=== PATIENT | male | born 1990 | race Caucasian/White ===

== ENCOUNTER → 2019-11-05 | Outpatient (CLI) | payer BC ==
[~2019-11-05] VITALS: Ht 188 cm; Wt 114.9 kg
[~2019-11-05] MED LIST: EXCEDRIN CAPLE1 EACH PO; NABUMETONE 500500 M1 PO
[2019-11-05 08:27] VITALS: BP 126/83
--- NOTE | 2019-11-05 08:45 | NUR ---
Pain Clinic Assessment: 1. History of Osteoarthritis: Not Applicable History of Rheumatoid Arthritis: Not Applicable 2. Height: 6 ft. 2 in. 188.0 cm. Weight: 253.4 lb. oz. 114.942 kg. Patient's BMI: 32.5 3. Vital Signs: BP: 126/83 Pulse: 98 Resp: 18 Temp: 02 Sat: 98 ECG Mon: 4. Pain Intensity: 2 5. Fall Risk: Dizziness: N Needs help standing or walking: N Fallen in the last 3 months: N Fall risk comments: 6. Patient on Blood Thinner: None 7. History of Hypertension: N 8. Opioid Therapy greater than 6 weeks: N Opiate Contract Signed: 9. Risk Assessment Tool Provided: 0-LOW RISK 10. Functional Assessment Tool: 35/ 11. Recreational Drug Use: Never Drug Type: Tobacco Use: Never Smoker Tobacco Type: Amount or Packs/day: How Many Years: Alcohol Use: No Frequency: Quant:
--- NOTE | 2019-11-06 11:52 | HPC ---
[facility] [place] [address] PAIN MANAGEMENT CONSULTATION Name: ANA LUISA NAVAS Room #: REG CLYasmin Cazares#: [id number] Admission: 11/05/19 Attend Phys: Pedro Woodward DO Discharge: Date of : 86 Report #: [id number] THIS REPORT FOR: cc: RJ - No family physician/PCP FAM - No family physician/PCP Pedro Woodward DO ~ DATE OF SERVICE: 11/05/2019 CHIEF COMPLAINT: Low back pain, left lower extremity pain with paresthesias. HISTORY OF PRESENT ILLNESS: As you know, the patient is a 29-year-old male who reports longstanding history of low back pain, left lower extremity pain with intermittent paresthesias. The patient states his pain began on 01/21/2019. He denies specific injury or trauma that may have led to symptom occurrence. He states that he has been dealing with his pain for an extended period of time. He sought evaluation through Neurosurgery, who advised the patient, no surgical intervention is necessary. He continues to experience pain that was not resolved with his typical chiropractic manipulation. As his pain continued to worsen, he sought further evaluation. He saw nurse practitioner, Jessica Cortes in consultation on 09/16/2019. They reviewed the patient's history and his MRI and advised him he is not a surgical candidate that the findings in his imaging are relatively minor and that a conservative treatment option should be initiated. The patient states that he has been subsequently referred to our clinic after undergoing physical therapy for the past 4-5 weeks. He has been applying topical lidocaine patches to the area and takes Excedrin for pain control. Prior to the recent exacerbation of symptoms, he was able to receive benefit with chiropractic manipulation, but the chiropractor is now indicated that his problems are "too significant" for them to continue to treat conservatively. He was subsequently referred to Neurosurgery, who then referred the patient on to our clinic to discuss interventional treatment options. The patient indicates today pain is continuous, steady and constant. He describes the pain as shooting, throbbing, sharp, stabbing and tender. He is placing his current pain score 2/10, daily average of 6-7/10, worst pain has been 10/10. The patient states pain is exacerbated with movement, improves with Lidoderm patches, heat, cold compresses and rest. The patient is involved in activities at work that could exacerbate his symptoms as he works for an [employer] company and he is in some "unusual places." He was referred to our service to discuss interventional treatment options to address axial back and intermittent left lower extremity pain. PAST MEDICAL HISTORY: Chronic headaches. PAST SURGICAL HISTORY: Eye surgery in 1990 and again [place] [address] PAIN MANAGEMENT CONSULTATION Name: ANA LUISA NAVAS Room #: REG RITO Cazares#: [id number] Admission: 11/05/19 Attend Phys: Pedro Woodward DO Discharge: Date of : 86 Report #: [id number] SOCIAL HISTORY: The patient denies tobacco, alcohol, IV or illicit drug use. 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 He is working, not receiving workmen's compensation or is trying to obtain discrete benefits. He is not in litigation in regards to pain. REVIEW OF SYSTEMS: Positive for weight gain, fatigue and weakness, frequent and recurrent headaches, wearing corrective eyewear, changes in bowel movements, some nausea, lightheadedness and dizziness, numbness and tingling sensations involving left lower extremity, nervousness, depression. All other review of systems negative per 12-point review of systems other than those listed in history of present illness. Pain impact score 35/70 indicating moderate interference of daily activities secondary to pain. ALLERGIES: No reported drug allergies. CURRENT MEDICATIONS: Excedrin caplet 2 tabs q. 8 hours p.r.n. pain. IMAGING: MRI lumbar spine obtained on 05/24/2019 shows epidural lipomatosis at L5 into the sacrum resulting in effacement of the subarachnoid space, otherwise no significant neural foraminal stenosis or central canal stenosis. There is a shallow posterior protrusion at L5-S1 with associated annular tear. No significant neural impingement at the level. There is mild facet degenerative changes at L5-S1. The rest of the lumbar spine is unremarkable. PHYSICAL EXAMINATION: VITAL SIGNS: Blood pressure 126/83, pulse 98, respiratory rate 18 and unlabored. The patient is 98% on room air, height 6 feet 2 inches tall, weight 253.4 pounds, BMI calculated at 32.5. GENERAL: Well-developed, well-nourished, well-hydrated, exogenously obese 29-year-old male appearing in stated age, pain is rated today 2/10. HEENT: Normocephalic, atraumatic. Pupils equal, round and reactive to light. Extraocular muscles are intact. Sclerae nonicteric without injection. NEUROLOGIC: Cranial nerves 2-12 grossly intact. Speech is fluent. The patient deemed a good historian. LUNGS: Clear. No wheezes, rhonchi or rales. CARDIOVASCULAR: Regular. No appreciable gallop, no rub. ABDOMEN: Soft, mildly obese, normoactive bowel sounds. EXTREMITIES: Show no clubbing, no cyanosis, and no edema. MUSCULOSKELETAL: Lower extremity strength appears symmetrical 5/5. He is intact to light touch from L1 through S2 dermatomes. Seated straight leg raising negative. Supine straight leg raising is negative. Kev's test negative. Modified Gaenslen's positive for axial low back pain. Ankle clonus negative. Babinski is negative. Gait is normal. The patient is able to toe [facility] [address] [place] [address] PAIN MANAGEMENT CONSULTATION Name: ANA LUISA NAVAS Room #: REG RITO Cazares#: [id number] Admission: 11/05/19 Attend Phys: Pedro Woodward DO Discharge: Date of : 88 Report #: [id number] walk, heel walk without complications. There is minor palpatory tenderness over the paraspinal musculature of lower lumbar spine. No spinous process tenderness. Modified Gaenslen's positive for some light axial back pain, no radiation of symptoms. ASSESSMENT: 1. Chronic low back pain. 2. Intermittent lumbar radiculopathy. 3. 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 4. Chronic axial back pain. PLAN: 1. Based on today's physical exam and history the patient has provided, the description the patient uses in regards to pain as well as location of symptoms, the patient is suffering from mild facet arthropathy of the lumbar spine, specifically at the L5-S1 level. Based on his history, it does appear the patient has had some lumbar radicular symptoms in the past and was subsequently referred to Neurosurgery. They advised the patient both at his initial surgical consultation and secondary consultation that surgery is not an option. Given the fact that there is an annular tear at the L5-S1 level, the patient was referred to our clinic to discuss the possibility of undergoing an epidural injection and determine if this could improve his overall pain. Physical examination today was relatively benign. There are some mild arthritic changes noted in some mild restriction of motion, but otherwise no emerson lumbar radicular symptoms noted today, though based on history, it does appear he had some symptoms radiating down the left leg. We discussed with the patient today treatment options we have available for his ongoing back symptoms. We discussed physical therapy, stretching exercises, core strengthening and a concerted effort at weight loss as a treatment course. I do feel this would be the goal standard treatment for this patient. We encouraged him to continue physical therapy and consider working more consistently on his core musculature. We discussed medication management adding anti-inflammatory medication for baseline pain control having him come off as Excedrin and trialing a new more potent medication. If the patient experiences recurrent radicular symptoms, additional medications could be amitriptyline, nortriptyline, Lyrica, Cymbalta or gabapentin. We discussed the requested lumbar epidural injection for which the patient was referred to our service by his neurosurgery team as an option. We also discussed spinal cord stimulator as an option if all other conservative options fail and he is remaining a nonsurgical candidate. After reviewing the risks and benefits of all proposed treatment options, the patient chose to make adjustments in medication management initially, trial stretching exercise, core strengthening at home and then consideration of lumbar epidural injection in a couple of weeks. 2. The patient was provided a prescription of nabumetone 500 mg dose 1 tab p.o. t.i.d. I have given the patient #90 tablets with 2 refills. I have advised the [address] [address] PAIN MANAGEMENT CONSULTATION Name: ANA LUISA NAVAS Room #: REG RITO Cazares#: [id number] Admission: 11/05/19 Attend Phys: Pedro Woodward DO Discharge: Date of : 86 Report #: [id number] patient to watch for dyspepsia, worsening of blood pressure, lower extremity edema with its use. He is not to utilize this medication with any other anti-inflammatories including his Excedrin. The patient will contact our clinic with any questions or concerns. Prescriptions were sent via [facility] to local pharmacy. 3. The patient and I will see each other again in followup visit in approximately 2 weeks. At that time, we will consider a lumbar epidural injection if his symptoms have not improved or he is continuing to experience lumbar radicular symptoms. We will plan to have the patient undergo an epidural injection at the next visit. If it is not necessary, we will adjust the medications if they are effective. Authorization is not necessary for this patient to undergo an epidural injection. 4. We have reviewed the patient's MRI with him in its entirety today. I am pleased to advise the patient that there are only minor changes noted at the L5-S1 level and should respond to conservative and even slightly more aggressive options such as an epidural injection. We are hopeful to be able to put the patient back into his typical work activity with minimal pain, so he can continue to participate in daily living. 5. We wish to thank Jessica Cortes for the opportunity to see this patient in consultation. We will keep you apprised of his response to treatment as we address his axial back pain and suspected lumbar radicular symptoms involving the low back and left lower extremity. Again, we wish to thank you for the opportunity to see the patient in consultation. <ELECTRONICALLY SIGNED> By: Pedro Woodward DO 11/06/19 1152 [id number] Pedro Woodward, DO /nt
== END ==
LOC: PAIN 07:57
DX: M51.27 Other intervertebral disc displacement, lumbosacral region (principal); M54.16 Radiculopathy, lumbar region

== ENCOUNTER → 2019-11-26 | Outpatient (CLI) | payer BC ==
[~2019-11-26] VITALS: Ht 188 cm; Wt 115.1 kg
[2019-11-26 08:11] VITALS: BP 122/84
--- NOTE | 2019-11-26 08:22 | NUR ---
Pain Clinic Assessment: 1. History of Osteoarthritis: Not Applicable History of Rheumatoid Arthritis: Not Applicable 2. Height: 6 ft. 2 in. 188.0 cm. Weight: 253.8 lb. oz. 115.123 kg. Patient's BMI: 32.6 3. Vital Signs: BP: 122/84 Pulse: 77 Resp: 16 Temp: 02 Sat: 99 ECG Mon: 4. Pain Intensity: 5-7 5. Fall Risk: Dizziness: N Needs help standing or walking: N Fallen in the last 3 months: N Fall risk comments: 6. Patient on Blood Thinner: None 7. History of Hypertension: N 8. Opioid Therapy greater than 6 weeks: N Opiate Contract Signed: 9. Risk Assessment Tool Provided: 0-LOW RISK 10. Functional Assessment Tool: 35/ 11. Recreational Drug Use: Never Drug Type: Tobacco Use: Never Smoker Tobacco Type: Amount or Packs/day: How Many Years: Alcohol Use: No Frequency: Quant:
--- NOTE | 2019-12-03 09:15 | HPC ---
[facility] [place] [address] PAIN MANAGEMENT CONSULTATION Name: ANA LUISA NAVAS Room #: REG CLYasmin Sage#: [id number] Admission: 11/26/19 Attend Phys: Pedro Woodward DO Discharge: Date of : 86 Report #: [id number] THIS REPORT FOR: cc: FAM - No family physician/PCP FAM - No family physician/PCP Pedro Woodward DO ~ DATE OF SERVICE: 11/26/2019 CHIEF COMPLAINT: Low back pain, left lower extremity pain and paresthesias. HISTORY OF PRESENT ILLNESS: As you know, the patient is a 29-year-old male with longstanding history of low back pain, left lower extremity pain and paresthesias. He states his pain began on 01/21/2019, denying any specific injury or trauma. He was seen by Neurosurgery who referred the patient to our clinic to discuss interventional treatments. We saw the patient on 11/05/2019 where we made adjustments in his medication management to address pain. We started him on an anti-inflammatory to control any inflammation and had noted some improvement in symptoms, but unfortunately his pain did not resolve. He now places his pain score 5-7/10. He returns today in followup visit to undergo first in a series of lumbar epidural injections under fluoroscopic guidance per the request of his neurosurgery team. The patient denies any new injury or trauma that may have led to symptom continuation. ALLERGIES: No reported drug allergies. CURRENT MEDICATIONS: Nabumetone 500 mg 3 times a day, Excedrin 1 tablet to 2 tablets p.r.n. breakthrough headache pain. SOCIAL HISTORY: The patient denies tobacco, alcohol, IV or illicit drug use. 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 He is accompanied by his significant other present in room. IMAGING: No new imaging available. PHYSICAL EXAMINATION: VITAL SIGNS: Blood pressure 122/84, pulse 77, respiratory rate 16 and unlabored, the patient is 99% on room air, height 6 feet 2 inches tall, weight 253.8 pounds, BMI calculated at 32.6. GENERAL: Well-developed, well-nourished, well-hydrated 29-year-old male appearing stated age. He is placing pain today at -03/13. HEENT: Normocephalic, atraumatic. Pupils equal, round, reactive to light. Speech is fluent. The patient deemed a good historian. EXTREMITIES: Show no clubbing, no cyanosis, and no edema. MUSCULOSKELETAL: Lower extremity strength appears symmetrical again today 01/06. [address] [address] PAIN MANAGEMENT CONSULTATION Name: ANA LUISA NAVAS [id number] Admission: 11/26/19 Attend Phys: Pedro Woodward DO Discharge: Date of : 86 Report #: [id number] He is intact to light touch from L1 through S2 dermatomes. Straight leg raising in the seated position is negative. Supine straight leg raising is negative. Kev's test is negative. Modified Gaenslen's positive for some axial low back pain. Ankle clonus negative. Babinski is negative. Gait appears mildly antalgic favoring left lower extremity over right. The patient is able to toe walk and heel walk without complications. ASSESSMENT: 1. Lumbar radiculopathy. 2. Mild displacement of lumbar intervertebral disk with radicular symptoms. 3. Chronic low back pain. 4. Chronic intractable pain. PLAN: 1. The patient returns today in followup visit indicating that the nabumetone trial at the last visit did provide some benefit in overall pain, but did not resolve his symptoms consistently. He has noted improvement in his axial symptoms, but has not seen any improvement in his left lower extremity pain. He returns today in followup visit per the request of his neurosurgery team to undergo lumbar epidural injection under fluoroscopic guidance. The patient denies any new injury or trauma that may have led to continuation of pain. He has been able to go about activities of daily living with pain interference and is hopeful to see improvement in symptoms with today's procedure. The patient was advised risks and benefits of a lumbar epidural injection. These risks include but are not necessarily limited to bleeding, bruising, infection, worsening pain, no relief of pain, also risk of temporary or permanent muscle weakness, temporary or permanent nerve damage, possible paralysis and . The patient states understood and wished to proceed. 2. No medication changes made at today's visit. The patient will continue current medical therapy as previously prescribed. 3. We will see the patient back in followup visit in 31 days. At that time, review the efficacy of today's epidural injection and determine if next in the series of epidural injections might be recommended. PROCEDURE NOTE DESCRIPTION OF PROCEDURE: L5-S1 left parasagittal epidural steroid injection under fluoroscopic guidance. This is the first procedure of the first series that the patient is undergoing. After obtaining written consent, the patient was taken back to the fluoroscopy suite, placed in a prone position with pillow under the abdomen to decrease lumbar lordosis. The skin overlying the lumbosacral area was then prepped and draped in aseptic fashion. The L5-S1 vertebral interspace was then identified [address] [address] PAIN MANAGEMENT CONSULTATION Name: ANA LUISA NAVAS Room #: REG CLYasmin Cazares#: [id number] Admission: 11/26/19 Attend Phys: Pedro Woodward DO Discharge: Date of : 86 Report #: [id number] by AP fluoroscopy. The skin and subcutaneous tissue overlying the target site of injection was anesthetized with 3 mL 1% lidocaine. A 20-gauge 3.5 inch Tuohy needle was then advanced under fluoroscopic guidance towards the epidural space using a left parasagittal approach. The epidural space was identified using loss of resistance to air technique. After negative aspiration for heme or cerebrospinal fluid, a total of 1 mL of Omnipaque was injected. A lumbar epidurogram was confirmed using both AP and lateral fluoroscopy. After negative aspiration for heme or cerebrospinal fluid, 5 mL of a solution containing 2 mL 40 mg/mL 80 mg total triamcinolone along with 3 mL of lidocaine 1% was injected in increments. Contrast spread was noted post epidural space. The needle was then retracted approximately half way and needle tract flushed with 1 mL of 1% lidocaine. Needle was then removed. There were no apparent sensory or motor deficits in the lower extremity following the procedure. A sterile bandage was placed over the injection site. The heart rate, pulse, oximetry and blood pressure were continuously monitored after the procedure. There were no complications. The patient tolerated the procedure well and was carefully escorted to the recovery room in stable condition. There were no apparent complications. After meeting discharge criteria, the patient was then discharged home. <ELECTRONICALLY SIGNED> By: Pedro Woodward DO 12/03/19 0915 [id number] Pedro Woodward DO /jose
== END | disposition home or self-care (01) ==
LOC: PAIN 11-25 09:46
DX: M51.16 Intervertebral disc disorders with radiculopathy, lumbar region (principal); G89.29 Other chronic pain; M54.5 Low back pain; Z98.890 Other specified postprocedural states; Z79.899 Other long term (current) drug therapy

== ENCOUNTER → 2020-03-17 | Outpatient (CLI) | payer BC ==
[~2020-03-17] VITALS: Ht 188 cm; Wt 104.3 kg
[~2020-03-17] MED LIST changes: +ASPERCREME1 EACH TOP
--- NOTE | ~2020-03-17 | HPC ---
[facility] [address] [place] [address] PAIN MANAGEMENT CONSULTATION Name: ANA LUISA NAVAS Room #: REG RITO M.Noel.#: [id number] Admission: 03/17/20 Attend Phys: Pedro Woodward DO Discharge: Date of : 86 Report #: [id number] THIS REPORT FOR: cc: FAM - No family physician/PCP FAM - No family physician/PCP Pedro Woodward DO ~ CC: [facility] physician/PCP Pedro Cortes NP DATE OF SERVICE: 03/17/2020 REFERRING PHYSICIAN: Jessica Cortes NP CHIEF COMPLAINT: Low back pain, left lower extremity pain and paresthesias. HISTORY OF PRESENT ILLNESS: As you know, the patient is a 29-year-old male with longstanding history of low back pain, left lower extremity pain and paresthesias. The patient states the pain began 01/21/2019, no specific injury or trauma. He sought evaluation through [facility] who referred the patient to trial epidural injections. The patient has undergone epidural injections x 1 performed on 11/26/2019. The patient reports that that injection provided 60% improvement in overall pain lasting for nearly 2 months. Unfortunately, his symptoms have begun to return. He now places pain score around 2-3/10. He describes the pain as constant, shooting, throbbing, stabbing and tender, exacerbated with movement, walking and certain activities, improves with rest, heat, cold compresses, Lidoderm patches and epidural injections. He returns today in followup visit to undergo second in the series of epidural injections. ALLERGIES: No known drug allergies. CURRENT MEDICATIONS: Lidoderm patch apply topically q.12 hours p.r.n. IMAGING: There is no new imaging available. PHYSICAL EXAMINATION: VITAL SIGNS: Blood pressure 116/75, pulse 68, respiratory rate 14 and unlabored. The patient is 97% on room air. Height 6 feet 2 inches tall, weight 230 pounds, BMI calculated 29.5. GENERAL: Well-developed, well-nourished, well-hydrated 29-year-old male appearing stated age, no acute distress, awake, alert and oriented x 3, pain is rated today 2-3/10. HEENT: Normocephalic, atraumatic. Pupils equal, round and reactive. EXTREMITIES: Show no clubbing, no cyanosis, no edema. [facility] [address] [place] [address] PAIN MANAGEMENT CONSULTATION Name: ANA LUISA NAVAS Room #: REG CLYasmin Sage#: [id number] Admission: 03/17/20 Attend Phys: Pedro Woodward DO Discharge: Date of : 86 Report #: [id number] MUSCULOSKELETAL: Lower extremity strength is symmetrical 5/5, intact to light touch from L1 through S2 dermatomes. Seated straight leg raising negative. Supine straight leg raising negative. Kev's test negative. Modified Gaenslen's positive for axial low back pain. Ankle clonus negative. Babinski is negative. Muscle bulk and tone equal and symmetrical in comparing the lower extremities. ASSESSMENT: 1. Chronic lumbar radiculopathy. 2. 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 3. Chronic low back pain. 4. Chronic intractable pain. PLAN: 1. The patient returns today in followup visit per the request of his neurosurgery team to undergo next in the series of lumbar epidural injections. The patient reported about 60% improvement in overall pain with previous epidural injection. He has had a slow and progressive return of symptoms without inciting injury or trauma. He is placing pain score today at 2-3/10. He returns today in followup visit to undergo lumbar epidural injection in hopes of improving residual pain. The patient has been advised risks and benefits of a lumbar epidural injection. These risks include but are not necessarily limited to bleeding, bruising, infection, worsening pain, no relief of pain, also risk of temporary or permanent muscle weakness, temporary or permanent nerve damage, possible paralysis and . The patient states understood and wished to proceed. 2. No medication changes made at today's visit. The patient will continue current medical therapy as previously prescribed. 3. We will see the patient back in followup visit on an as needed basis for possible next in the series of lumbar epidural injections. PROCEDURE NOTE DESCRIPTION OF PROCEDURE: L5-S1 left paramedian epidural steroid injection under fluoroscopic guidance. This is the second procedure of the first series that the patient is undergoing. After obtaining written consent, the patient was taken back to the fluoroscopy suite, placed in a prone position with pillow under the abdomen to decrease lumbar lordosis. The skin overlying the lumbosacral area was then prepped and draped in aseptic fashion. The L5-S1 vertebral interspace was then identified by AP fluoroscopy. The skin and subcutaneous tissue overlying the target site of injection was anesthetized with 3 mL 1% lidocaine. [address] [address] PAIN MANAGEMENT CONSULTATION Name: ANA LUISA NAVAS Room #: SCOTT Cazares#: [id number] Admission: 03/17/20 Attend Phys: Pedro Woodward DO Discharge: Date of : 86 Report #: [id number] A 20-gauge 3-1/2 inch Tuohy needle was then advanced under fluoroscopic guidance towards the epidural space using a right paramedian approach. The epidural space was identified using loss of resistance to air technique. After negative aspiration for heme or cerebrospinal fluid, a total of 1 mL of Omnipaque was injected. A lumbar epidurogram was confirmed using both AP and lateral fluoroscopy. After negative aspiration for heme or cerebrospinal fluid, 5 mL of a solution containing 2 mL 40 mg per mL, 80 mg total triamcinolone along with 3 mL of lidocaine 1% was injected in increments. Contrast spread was noted posterior epidural space. The needle was then retracted approximately half way and needle tract flushed with 1 mL of 1% lidocaine. Needle was then removed. There were no apparent sensory or motor deficits in the lower extremity following the procedure. A sterile bandage was placed over the injection site. The heart rate, pulse, oximetry and blood pressure were continuously monitored after the procedure. There were no apparent complications. The patient tolerated the procedure well and was carefully escorted to the recovery room in stable condition. There were no apparent complications. After meeting discharge criteria, the patient was then discharged home. By: [id number] Pedro Woodward DO /nt
[2020-03-17 08:55] VITALS: BP 116/75
--- NOTE | 2020-03-17 09:04 | NUR ---
Pain Clinic Assessment: 1. History of Osteoarthritis: Not Applicable History of Rheumatoid Arthritis: Not Applicable 2. Height: 6 ft. 2 in. 188.0 cm. Weight: 230.0 lb. oz. 104.328 kg. Patient's BMI: 29.5 3. Vital Signs: BP: 116/75 Pulse: 69 Resp: 14 Temp: 02 Sat: 97 ECG Mon: 4. Pain Intensity: 2-3 5. Fall Risk: Dizziness: N Needs help standing or walking: N Fallen in the last 3 months: N Fall risk comments: 6. Patient on Blood Thinner: None 7. History of Hypertension: N 8. Opioid Therapy greater than 6 weeks: N Opiate Contract Signed: 9. Risk Assessment Tool Provided: 0-LOW RISK 10. Functional Assessment Tool: 35/ 11. Recreational Drug Use: Never Drug Type: Tobacco Use: Never Smoker Tobacco Type: Amount or Packs/day: How Many Years: Alcohol Use: No Frequency: Quant:
== END | disposition home or self-care (01) ==
LOC: PAIN 06:51
PROVIDERS: ATTEND Anesthesiology Pain Medicine
DX: M51.16 Intervertebral disc disorders with radiculopathy, lumbar region (principal); G89.29 Other chronic pain; Z98.890 Other specified postprocedural states; Z79.899 Other long term (current) drug therapy

== ENCOUNTER → 2020-10-28 | Outpatient (CLI) | payer BC, OTHER ==
[~2020-10-28] VITALS: Ht 188 cm; Wt 102.2 kg
--- NOTE | ~2020-10-28 | HPC ---
[facility] [address] [place] [address] PAIN MANAGEMENT CONSULTATION Name: ANA LUISA NAVAS Room #: REG RITO Sage#: [id number] Admission: 10/28/20 Attend Phys: Pedro Woodward DO Discharge: Date of : 86 Report #: [id number] THIS REPORT FOR: cc: FAM - No family physician/PCP FAM - No family physician/PCP Pedro Woodward DO ~ DATE OF SERVICE: 10/28/2020 CHIEF COMPLAINT: Low back pain, left lower extremity pain and paresthesias. HISTORY OF PRESENT ILLNESS: As you know, the patient is a pleasant 29-year-old male with longstanding history of low back pain, left lower extremity pain with paresthesias. He states his pain began on 01/21/2019 with no specific injury or trauma that led to symptom development. He sought evaluation through his primary care physician, ultimately being sent to Neurosurgery for evaluation. He was referred to our clinic to trial epidural injections under fluoroscopic guidance. He has done very well with epidural injections. The most recent epidural injection that was provided was in 03/2020. He received 75% improvement in overall pain until just recently where he has had a slow and progressive return of symptoms. He returns today in followup visit stating that activities over the past week to week and a half exacerbated pain. He was doing some construction around his home and doing some heavy lifting. He reports pain score today 3-4/10, returning in followup visit to undergo lumbar epidural injection. ALLERGIES: No known drug allergies. CURRENT MEDICATIONS: Lidoderm patch. IMAGING: No new imaging available. PHYSICAL EXAMINATION: VITAL SIGNS: Blood pressure 114/76, pulse 84, respiratory rate 16 and unlabored. The patient is 98% on room air, height 6 feet 2 inches tall, weight 225.2 pounds, BMI calculated 28.9. GENERAL: Well-developed, well-nourished, well-hydrated 29-year-old male appearing stated age, pain is rated today 3-4/10. HEENT: Normocephalic, atraumatic. Pupils equal, round. He is wearing glasses. He is wearing a mask in compliance with COVID-19 regulations. EXTREMITIES: Show no clubbing, no cyanosis. No appreciable edema. MUSCULOSKELETAL: Lower extremity strength equal and symmetrical, 5/5 again today. Seated straight leg raising negative. Supine straight leg raising is mildly positive on the left. ESPINOZA'S test is negative. Modified Gaenslen's positive for axial low back pain. ASSESSMENT: [facility] [address] [place] [address] PAIN MANAGEMENT CONSULTATION Name: ANA LUISA NAVAS [id number] Admission: 10/28/20 Attend Phys: Pedro Woodward DO Discharge: Date of : 86 Report #: [id number] 1. Symptomatic lumbar radiculopathy. 2. Displacement of lumbar intervertebral disk with radiculopathy. 3. Chronic low back pain. PLAN: 1. The patient returns today in followup visit to undergo lumbar epidural injection under fluoroscopic guidance. He reports the previous epidural injection gave 75% improvement in overall pain lasting until just recently where he has had a slow and progressive return of symptoms. He believes he may have exacerbated symptoms while doing construction work around his home and lifting heavy objects. He has returned today to undergo lumbar epidural injection and has been advised risks and benefits of the procedure, states he understood and wished to proceed. 2. No medication changes made at today's visit. The patient will continue current medical therapy as prior prescribed. 3. The patient will return to our clinic on an as-needed basis for possible next in the series of lumbar epidural injections. We are hopeful the patient will once again see prolonged benefit with the epidural injection provided today. PROCEDURE NOTE DESCRIPTION OF PROCEDURE: L5-S1 left paramedian epidural steroid injection under fluoroscopic guidance. This is the third procedure of the first series that the patient is undergoing. After obtaining written consent, the patient was taken back to the fluoroscopy suite, placed in a prone position with pillow under the abdomen to decrease lumbar lordosis. The skin overlying the lumbosacral area was then prepped and draped in aseptic fashion. The L5-S1 vertebral interspace was then identified by AP fluoroscopy. The skin and subcutaneous tissue overlying the target site of injection was anesthetized with 3 mL 1% lidocaine. A 20-gauge 3-1/2-inch Tuohy needle was then advanced under fluoroscopic guidance towards the epidural space using a left paramedian approach. The epidural space was identified using loss of resistance to air technique. After negative aspiration for heme or cerebrospinal fluid, a total of 1 mL of Omnipaque was injected. A lumbar epidurogram was confirmed using both AP and lateral fluoroscopy. After negative aspiration for heme or cerebrospinal fluid, 5 mL of a solution containing 2 mL 40 mg/mL, 80 mg total triamcinolone along with 3 mL of lidocaine 1% was injected in increments. Contrast spread was noted posterior epidural space. The needle was then retracted approximately half way and needle tract flushed with 1 mL of 1% lidocaine. Needle was then removed. There were no apparent sensory or motor deficits in the lower extremity following the procedure. A sterile bandage was placed over the injection site. [address] [address] PAIN MANAGEMENT CONSULTATION Name: ANA LUISA NAVAS Room #: REG CLI [facility]#: [id number] Admission: 10/28/20 Attend Phys: Pedro Woodward DO Discharge: Date of : 86 Report #: [id number] The heart rate, pulse, oximetry and blood pressure were continuously monitored after the procedure. There were no apparent complications. The patient tolerated the procedure well and was carefully escorted to the recovery room in stable condition. There were no apparent complications. After meeting discharge criteria, the patient was then discharged home. By: [id number] Pedro Woodward DO /nt
[2020-10-28 14:53] VITALS: BP 114/76
--- NOTE | 2020-10-28 15:10 | NUR ---
Pain Clinic Assessment: 1. History of Osteoarthritis: DENIES History of Rheumatoid Arthritis: DENIES 2. Height: 6 ft. 2 in. 188.0 cm. Weight: 225.2 lb. oz. 102.150 kg. Patient's BMI: 28.9 3. Vital Signs: BP: 114/76 Pulse: 84 Resp: 16 Temp: 02 Sat: 98 ECG Mon: 4. Pain Intensity: 3-4 5. Fall Risk: Dizziness: N Needs help standing or walking: N Fallen in the last 3 months: N Fall risk comments: 6. Patient on Blood Thinner: None 7. History of Hypertension: N 8. Opioid Therapy greater than 6 weeks: N Opiate Contract Signed: 9. Risk Assessment Tool Provided: 0-LOW RISK 10. Functional Assessment Tool: 35/ 11. Recreational Drug Use: Never Drug Type: Tobacco Use: Never Smoker Tobacco Type: Chewing Tobacco Amount or Packs/day: How Many Years: Alcohol Use: No Frequency: Quant:
== END | disposition home or self-care (01) ==
LOC: PAIN 07:00
PROVIDERS: ATTEND Anesthesiology Pain Medicine
DX: M51.16 Intervertebral disc disorders with radiculopathy, lumbar region (principal); G89.29 Other chronic pain; Z98.890 Other specified postprocedural states; Z79.899 Other long term (current) drug therapy